=== PATIENT | female | born 1940 | race Caucasian/White ===

== ENCOUNTER 2017-11-07 05:01 | Emergency (ER) | payer OTHER ==
[~2017-11-07] VITALS: Ht 165.1 cm; Wt 74.4 kg
[~2017-11-07 05:01] MED LIST: ALENDRONATE SODIUM; AMLODIPINE; LEVOTHYROXINE; LOSARTAN POTASSIUM; METOPROLOL; OMEPRAZOLE; PRAVASTATIN
[2017-11-07] MEDS ORDERED: ONDANSETRON HCL 4 MG ORAL DISINTEGRATING TAB ONE (05:28)
[2017-11-07] MEDS ORDERED: ONDANSETRON HCL 4 MG ORAL DISINTEGRATING TAB PO ONE (05:30)
== END 2017-11-07 05:25 | disposition home or self-care (01) ==
LOC: ER 05:01
DX: I10 Essential (primary) hypertension (principal)
CPT/HCPCS: 99282

== ENCOUNTER 2017-11-08 15:15 | Emergency (ER) | payer OTHER ==
[~2017-11-08] VITALS: Ht 165.1 cm; Wt 70.3 kg
--- OUTSIDE RECORDS SUMMARY | 2017-11-08 15:18 | XMS REPORT | Continuity of Care Document ---
Author Author [facility] Organization [facility] Address [address] [place] [address] Phone Unavailable Care Team Providers Care Undercollar Baster Name Role Phone NO, PCP PCP Unavailable Insurance Providers Guarantor EdenilsonShannen Santos Address [address] [place] [address] Email NONE Payer [place] Policy Number [id number] Subscriber's Name Shannen Pyle Relationship 18 Self / Same As Patient Group Number [id number] Group Name [id number] Effective Date 04 Advance Directives Directive Response Recorded Date/Time Does the patient have an advance directive? No 04/19/11 1:58pm If yes, is advance directive on file with [facility]? No 04/19/11 1:58pm If not on file with [facility] will patient provide a copy? No 04/19/11 1:58pm Problems No problem information available. Medications Current Home Medications Medication Dose Units Route Directions Days Qty Instructions Start Date Amlodipine Levothyroxine Losartan Potassium Metoprolol Omeprazole Pravastatin Past Home Medications Medication Directions Ordered Status Alendronate Sodium , Discontinued Social History Social History Problem Response Recorded Date/Time Onset Date Status Hx Psychiatric Problems No 04/19/2011 1:58pm Not Applicable Not Applicable Hx Eating Disorder No 03/31/2011 1:27pm Not Applicable Not Applicable Hx Substance Use Disorder No 03/31/2011 1:27pm Not Applicable Not Applicable Hx Depression No 03/31/2011 1:27pm Not Applicable Not Applicable Smoking Status Start Date Stop Date Never Smoker Hospital Discharge Instructions No hospital discharge instruction information available. Plan of Care Discharge Date 11/07/17 5:25am Disposition HOME, SELF-CARE Condition at Discharge Stable Instructions/Education Provided Hypertension Forms Provided Work/School Excuse Prescriptions See Medication Section Additional Instructions/Education FOLLOW UP WITH PRIMARY CARE PHYSICIAN Functional Status No functional status information available. Allergies, Adverse Reactions, Alerts Allergen Type Severity Reaction Status Last Updated Meloxicam Allergy Active 04/19/11 Levofloxacin Allergy PT STATES SHE THINKS SHE MAY BE Active 03/31/11 Immunizations No immunization information available. Vital Signs Acute Vital Signs Vital Response Date/Time Height 5 ft 5 in 11/07/2017 5:07am Weight 164 lb 11/07/2017 5:07am Body Mass Index 27.3 kg/m^2 11/07/2017 5:07am Results No relevant diagnostic test, laboratory data and/or discharge summary information available. Procedures No procedure information available. Encounters Encounter Location Arrival/Admit Date Discharge/Depart Date Attending Provider Departed Emergency Room [facility] 11/07/17 5:01am 5:25am SILVANO GROVER MD
[2017-11-08] MEDS ORDERED: DIATRIZOATE MEGL/DIATRIZOA SOD 30 ML BTL PO ONE (18:27)
[2017-11-08 18:32] LABS: BASOPHILS % 0.3 % (0.0-1.0); EOSINOPHILS % 0.4 % (0.0-6.0); HEMATOCRIT 35.4 % (34.2-44.1); HEMOGLOBIN 12.8 g/dL (12.0-16.0); LYMPHOCYTES # (AUTO) 2.2 (1.0-3.2); LYMPHOCYTES % 23.6 % (18.0-39.1); MEAN CORPUSCULAR HEMOGLOBIN 32.2 pg (28-32); MEAN CORPUSCULAR HGB CONC 36.2 g/dL (31-35); MEAN CORPUSCULAR VOLUME 88.9 fL (81-99); MONOCYTES # (AUTO) 0.9 (0.2-0.8); MONOCYTES % 9.9 % (4.4-11.3); NEUTROPHILS # (AUTO) 6.2 (2.1-6.9); NEUTROPHILS % 65.4 % (38.7-80.0); PLATELET COUNT 262 x10e3/uL (140-360); RED BLOOD COUNT 3.98 x10e6/uL (3.6-5.1)
[2017-11-08 18:36] LABS: BILIRUBIN,URINE NEGATIVE (NEGATIVE); KETONES,URINE NEGATIVE (NEGATIVE); LEUKOCYTE ESTERASE ,URINE TRACE (NEGATIVE); NITRITE,URINE NEGATIVE (NEGATIVE); PROTEIN,URINE DIPSTICK NEGATIVE (NEGATIVE); URINE UROBILINOGEN 0.2 mg/dL (0.2 - 1)
[2017-11-08 18:37] LABS: CLARITY,URINE CLEAR (CLEAR); COLOR,URINE STRAW (YELLOW)
[2017-11-08 18:41] LABS: INR 1.04; PROTHROMBIN TIME 12.8 seconds (11.9-14.5)
[2017-11-08 18:42] LABS: PARTIAL THROMBOPLASTIN TIME 24.7 seconds (23.8-35.5)
[2017-11-08 18:49] LABS: ALANINE AMINOTRANSFERASE 12 IU/L (0-55); ALBUMIN 4.3 g/dL (3.5-5.0); ALBUMIN/GLOBULIN RATIO 1.3 (0.8-2.0); ALKALINE PHOSPHATASE 71 IU/L (40-150); AMYLASE 66 U/L (25-125); ANION GAP 14.3 mmol/L (8-16); BLOOD UREA NITROGEN 6 mg/dL (7-26); BUN/CREATININE RATIO 7 (6-25); CALCIUM 9.7 mg/dL (8.4-10.2); CARBON DIOXIDE 28 mmol/L (22-29); CHLORIDE 87 mmol/L (98-107); CREATININE, SERUM 0.82 mg/dL (0.57-1.11); EST GLOMERULAR FILTRATION RATE > 60 ML/MIN (60-); GLUCOSE 99 mg/dL (74-118); LIPASE 67 U/L (8-78); POTASSIUM 3.3 mmol/L (3.5-5.1); SODIUM 126 mmol/L (136-145)
[2017-11-08 18:58] LABS: RBC,URINE 0-5 /HPF (0-5); WBC,URINE (MAN) 0-5 /HPF (0-5)
[2017-11-08 18:59] LABS: EPITHELIAL CELLS,URINE RARE /LPF; TRANSITIONAL EPI CELLS,URINE FEW
--- NOTE | 2017-11-08 19:41 | Diagnostic Imaging Report ---
EXAM: CT Abdomen and Pelvis WITH contrast INDICATION: Pain COMPARISON: None. TECHNIQUE: Abdomen and Pelvis was scanned utilizing a multidetector helical scanner after administration of IV contrast. Coronal and sagittal reformations were obtained. IV CONTRAST: 100 mL Isovue-370 COMPLICATIONS: None RADIATION DOSE: Total DLP:422 mGy*cm Estimated effective dose: (DLP x 0.015 x size factor) mSv CTDIvol has been reviewed. It is below the limits set by the Radiation Protocol Committee (RPC). FINDINGS: Abdomen: Lung Bases: Atelectasis. Solid Organs: Scattered hypodensities in the liver, majority of which are too small to characterize. Cholecystectomy clips present. Cyst left kidney with additional to small characterize hypodensity. Mottled appearance of spleen. Adrenal glands and pancreas unremarkable. Probable reservoir phenomenon. Upper GI Tract: No distention of the stomach. Small bowel not dilated. Enteric contrast present to the proximal to mid ileum. Vascularity: Mild vascular calcifications. No aortic aneurysm. Lymph Nodes: No suspicious adenopathy. Other: None. Pelvis: Bladder: Unremarkable. Other: None Colon: Distal decompression and lack of enteric contrast limits evaluation. No right lower quadrant inflammatory changes. Bones: Moderate left apex curvature of the lumbar spine with moderate degenerative changes. 27 mm sclerotic lesion L5. IMPRESSION: 1. No small bowel obstructive changes. 2. Splenic and hepatic hypodensities incompletely evaluated. Liver mass MRI could be obtained for further evaluation. 3. Ill-defined 27 mm sclerotic lesion L5. If prior studies are available for comparison, this would be helpful. Bone scan could be obtained for further evaluation. 4. Small hiatal hernia. Signed by: Dr. Jay Mancera MD on 11/08/2017 7:38 PM
[2017-11-08] MEDS ORDERED: SODIUM CHLORIDE 0.9% 50ML 50 ML ONE (22:47)
[2017-11-08] MEDS ORDERED: IOPAMIDOL 370 MG/ML 200 ML INFUS..BTL INJ ONE (22:48)
== END 2017-11-08 20:55 | disposition home or self-care (01) ==
LOC: ER 15:15
DX: R10.31 Right lower quadrant pain (principal); R11.2 Nausea with vomiting, unspecified; N39.0 Urinary tract infection, site not specified; E87.6 Hypokalemia; I10 Essential (primary) hypertension
CPT/HCPCS: 36415; 74177; 80053; 81001; 82150; 83690; 85025; 85610; 85730; 99284; Q9967

== ENCOUNTER 2018-10-22 13:46 | Emergency (ER) | payer MEDICARE, OTHER ==
[~2018-10-22] VITALS: Ht 165.1 cm; Wt 70.3 kg
--- OUTSIDE RECORDS SUMMARY | 2018-10-22 13:49 | XMS REPORT ---
Author Author [facility] Address Unknown Phone Unavailable Care Team Providers Care Feed Research Technician Name Role Phone Jairo BRICE Unavailable Unavailable Problems This patient has no known problems. Allergies, Adverse Reactions, Alerts This patient has no known allergies or adverse reactions. Medications This patient has no known medications. Results Test Description Test Time Test Comments Text Results Atomic Results Result Comments CT ABDOMEN/PELVIS W [place] [address] Patient Name: LUPE BRUNO MR #: [id number] : 1940 Age/Sex: 77/F Req #: [id number] Adm Physician: Ordered by: RUCHI LIN [employer] INVESTMENT ACT CAREER MANAGER Report #: [id number] Location: ER Room/Bed: Procedure: [id number] CT/CT ABDOMEN/PELVIS W Exam Date: 11/08/17 Exam Time: 1906 REPORT STATUS: Signed EXAM: CT Abdomen and Pelvis WITH contrast INDICATION: Pain COMPARISON: None. TECHNIQUE: Abdomen and Pelvis was scanned utilizing a multidetector helical scanner after administration of IV contrast. Coronal and sagittal reformations were obtained. IV CONTRAST: 100 mL Isovue- 370 COMPLICATIONS: None RADIATION DOSE: Total DLP:422 mGy*cm Estimated effective dose: (DLP x 0.015 x size factor) mSv CTDIvol has been reviewed. It is below the limits set by the Radiation Protocol Committee (RPC). FINDINGS: Abdomen: Lung Bases: Atelectasis. Solid Organs: Scattered hypodensities in the liver, majority of which are too small to characterize. Cholecystectomy clips present. Cyst left kidney with additional to small characterize hypodensity. Mottled appearance of spleen. Adrenal glands and pancreas unremarkable. Probable reservoir phenomenon. Upper GI Tract: No distention of the stomach. Small bowel not dilated. Enteric contrast present to the proximal to mid ileum. Vascularity: Mild vascular calcifications. No aortic aneurysm. Lymph Nodes: No suspicious adenopathy. Other: None. Pelvis: Bladder: Unremarkable. Other: None Colon: Distal decompression and lack of enteric contrast limits evaluation. No right lower quadrant inflammatory changes. Bones: Moderate left apex curvature of the lumbar spine with moderate degenerative changes. 27 mm sclerotic lesion L5. IMPRESSION: 1. No small bowel obstructive changes. 2. Splenic and hepatic hypodensities incompletely evaluated. Liver mass MRI could be obtained for further evaluation. 3. Ill-defined 27 mm sclerotic lesion L5. If prior studies are available for comparison, this would be helpful. Bone scan could be obtained for further evaluation. 4. Small hiatal hernia. Signed by: Dr. Jay Mancera MD on 11/08/2017 7:38 PM Dictated By: JAY MANCERA MD 37 Transcribed By: PIPER on 11/08/171937 COPY TO: RUCHI LIN NP
[2018-10-22] MEDS ORDERED: ONDANSETRON HCL 4 MG ORAL DISINTEGRATING TAB PO ONE (14:15)
--- NOTE | 2018-10-22 15:15 | NUR ---
updated plan of care. notified of lab results. pt upset asking why she is waiting so long for testing. explained multiple pt getting imaging and appologized for wait. pt states understanding. no vomiting since arrival
[2018-10-22] MEDS ORDERED: IOPAMIDOL 370 MG/ML 50ML INFUS..BTL INJ ONE (16:00)
--- NOTE | 2018-10-22 16:12 | Diagnostic Imaging Report ---
EXAMINATION: CT of the abdomen and pelvis with contrast. TECHNIQUE: Spiral CT images of the abdomen and pelvis were performed from the lung bases to the lesser trochanters after the intravenous administration of 100 cc of Isovue-370 and the oral administration of water. Coronal and sagittal reformatted images were obtained. COMPARISON: CT abdomen and pelvis 11/08/2017 CLINICAL HISTORY:Right lower quadrant pain DISCUSSION: ABDOMEN/PELVIS: LOWER THORAX:Linear opacity in the lower lobes left greater than right compatible with subsegmental atelectasis. HEPATOBILIARY: Multiple hypoattenuating hepatic lesions are again noted. The largest lesions are in segment 4A and segment 5, both of which measure less than 20 Hounsfield units in attenuation compatible with cysts. Additional smaller lesions scattered throughout the liver are too small to further characterize but likely also to represent small cysts. Moderate intrahepatic biliary ductal dilatation is unchanged and may relate to reservoir effect status post cholecystectomy. SPLEEN: Multiple hypoattenuating lesions are again noted scattered throughout the spleen, not significantly changed compared to the prior examination when accounting for differences in slice selection. PANCREAS: No focal masses or ductal dilatation. ADRENALS: No adrenal nodules. KIDNEYS/URETERS: Left upper pole cyst, not significantly changed. No additional focal lesion with the exception of a subcentimeter hypoattenuating lesion projecting from the lower pole of the left kidney, also unchanged and likely to represent a small cyst. PELVIC ORGANS/BLADDER: Urinary bladder is unremarkable. Uterus is not identified and has presumably been removed. PERITONEUM/RETROPERITONEUM: No ascites. No pneumoperitoneum. LYMPH NODES: No pelvic sidewall, retroperitoneal, or mesenteric lymphadenopathy. VESSELS: Atherosclerotic calcification of the abdominal aorta and major branch vessels without aneurysmal dilatation. Portal vein, splenic vein, and central superior mesenteric vein are patent. GI TRACT: The large bowel shows no evidence of distention or wall thickening, though the sigmoid colon and rectum are collapsed and poorly evaluated the appendix is not definitively identified. No right lower quadrant inflammation. No small bowel dilatation to suggest obstruction. Moderate sliding hiatal hernia. BONES AND SOFT TISSUE: Unchanged well-circumscribed 2.7 cm sclerotic lesion in L5 with a smaller sclerotic lesion in the sacral body. Multilevel degenerative disc changes and facet arthropathy of the thoracolumbar spine with levoscoliotic curvature at the thoracolumbar junction. No focal soft tissue abnormalities. IMPRESSION: No acute intra-abdominal or pelvic CT abnormalities. Stable moderate intrahepatic biliary ductal dilatation status post cholecystectomy, likely related to reservoir effect. Correlation with serum bilirubin is suggested. Grossly unchanged hepatic and splenic hypodensities which may be definitively characterized by MRI of the abdomen with and without contrast as previously discussed. Moderate hiatal hernia. Stable sclerotic lesion in the L5 vertebral body, likely an atypical hemangioma or large osteoma. Signed by: Dr. Will Faye M.D. on 10/22/2018 4:09 PM
== END 2018-10-22 16:34 | disposition home or self-care (01) ==
LOC: FSED 13:46
DX: R10.31 Right lower quadrant pain (principal); I10 Essential (primary) hypertension; E78.5 Hyperlipidemia, unspecified
CPT/HCPCS: 74177; 80053; 81003; 83880; 99284; Q0162; Q9967

== ENCOUNTER 2021-12-20 15:27 | Observation (INO) | payer MEDICARE ==
[~2021-12-20] VITALS: Ht 165.1 cm; Wt 70.3 kg
[2021-12-20] MEDS ORDERED: SODIUM CHLORIDE FLUSH 10 ML SYR IV PRN (16:00)
[2021-12-20 16:09] LABS: BASOPHILS % 0.5 % (0.0-1.0); EOSINOPHILS # (AUTO) 0.1 (0.0-0.4); EOSINOPHILS % 0.8 % (0.0-6.0); HEMATOCRIT 39.5 % (34.2-44.1); HEMOGLOBIN 13.4 g/dL (12.0-16.0); LYMPHOCYTES # (AUTO) 1.6 (1.0-3.2); LYMPHOCYTES % 19.3 % (18.0-39.1); MEAN CORPUSCULAR HEMOGLOBIN 32.1 pg (28-32); MEAN CORPUSCULAR HGB CONC 33.9 g/dL (31-35); MEAN CORPUSCULAR VOLUME 94.7 fL (81-99); MONOCYTES # (AUTO) 0.6 (0.2-0.8); MONOCYTES % 7.1 % (4.4-11.3); NEUTROPHILS # (AUTO) 6.1 (2.1-6.9); NEUTROPHILS % 71.6 % (38.7-80.0); PLATELET COUNT 239 x10e3/uL (140-360); RED BLOOD COUNT 4.17 x10e6/uL (3.6-5.1); RED CELL DISTRIBUTION WIDTH 12.4 % (11.7-14.4)
[2021-12-20 16:36] LABS: ALANINE AMINOTRANSFERASE 10 IU/L (0-55); ALBUMIN 3.9 g/dL (3.5-5.0); ALKALINE PHOSPHATASE 65 IU/L (40-150); ANION GAP 13.4 mmol/L (8-16); BLOOD UREA NITROGEN 12 mg/dL (7-26); BUN/CREATININE RATIO 13 (6-25); CALCIUM 9.4 mg/dL (8.4-10.2); CARBON DIOXIDE 26 mmol/L (22-29); CHLORIDE 93 mmol/L (98-107); EST GLOMERULAR FILTRATION RATE 60 ML/MIN (60-); GLUCOSE 141 mg/dL (74-118); POTASSIUM 3.4 mmol/L (3.5-5.1); SODIUM 129 mmol/L (136-145)
[2021-12-20] MEDS ORDERED: ONDANSETRON HCL INJ 2MG/ML 2ML 2 MG/ML VIAL IV PRN (17:30)
[2021-12-20] MEDS ORDERED: HYDRALAZINE HCL 20 MG/ML VIAL IV PRN (19:45)
[2021-12-20] MEDS ORDERED: ACETAMINOPHEN 325 MG TAB PO PRN (19:45)
[2021-12-20] MEDS ORDERED: POTASSIUM CHLORIDE 10MEQ EA PO ONE (20:05)
[2021-12-20 20:32] VITALS: BP 154/85
[2021-12-20 21:00] VITALS: BP 154/85
[2021-12-20] MEDS ORDERED: PRAVASTATIN 20 MG TAB PO SCH (21:00)
[2021-12-20 22:48] LABS: CREATINE KINASE MB 1.4 ng/mL (0-5.0)
[2021-12-21 00:06] VITALS: BP 170/67
[2021-12-21 00:48] LABS: CREATINE KINASE 62 IU/L (29-168)
[2021-12-21] MEDS ORDERED: ALPRAZOLAM 0.25 MG TAB PO ONE (05:00)
[2021-12-21 05:15] VITALS: BP 120/74
[2021-12-21 07:17] VITALS: BP 158/92
[2021-12-21] MEDS ORDERED: DILTIAZEM 24HR120 M1 PO (07:21)
[2021-12-21] MEDS ORDERED: HYDROCHLOROTHIA25 MG (07:21)
[2021-12-21] MEDS ORDERED: LEVOTHYROXINE88 MCG PO (07:21)
[2021-12-21] MEDS ORDERED: METOPROLOL TART50 MG PO (07:21)
[2021-12-21] MEDS ORDERED: PRAVASTATIN SOD20 MG PO (07:21)
[2021-12-21] MEDS ORDERED: LOSARTAN POTASS25 MG PO (07:21)
[2021-12-21] MEDS ORDERED: TRICOR48 MG PO (07:21)
[2021-12-21 08:38] VITALS: BP 158/92
[2021-12-21] MEDS ORDERED: ASPIRIN 81 MG ENTERIC COATED PO SCH (09:00)
[2021-12-21] MEDS ORDERED: LOSARTAN POTASSIUM 25 MG TAB PO SCH (09:00)
[2021-12-21] MEDS ORDERED: OMEPRAZOLE 20 MG CAP PO SCH (09:00)
[2021-12-21] MEDS ORDERED: METOPROLOL TARTRATE 25 MG TAB PO SCH (09:00)
[2021-12-21 09:07] LABS: CREATINE KINASE 52 IU/L (29-168)
[2021-12-21 10:32] LABS: CHOL/HDL RATIO 3.2 (3.0-3.6)
[2021-12-21 12:00] VITALS: BP 156/81
[2021-12-21 12:04] LABS: ANION GAP 15.7 mmol/L (8-16); CALCIUM 9.2 mg/dL (8.4-10.2); CREATININE, SERUM 0.75 mg/dL (0.57-1.11); POTASSIUM 3.7 mmol/L (3.5-5.1)
[2021-12-21] MEDS ORDERED: ONDANSETRON HCL 4 MG ORAL DISINTEGRATING TAB PO PRN (12:30)
[2021-12-21] MEDS ORDERED: METOPROLOL TARTRATE 50 MG TAB PO SCH (17:00)
[2021-12-22] MEDS ORDERED: LEVOTHYROXINE SODIUM 88 MCG TAB PO SCH (06:00)
[2021-12-22] MEDS ORDERED: FENOFIBRATE 48 MG TAB PO SCH (09:00)
[2021-12-22] MEDS ORDERED: LOSARTAN POTASSIUM 25 MG TAB PO SCH (09:00)
== END 2021-12-21 13:01 | disposition home or self-care (01) ==
LOC: ER 15:41 → ERHOLD 17:33 → MED/SURG 19:42
PROVIDERS: ADMIT Internal Medicine; ATTEND Internal Medicine
DX: R07.89 Other chest pain (principal); I10 Essential (primary) hypertension; K21.9 Gastro-esophageal reflux disease without esophagitis; F41.9 Anxiety disorder, unspecified; M06.9 Rheumatoid arthritis, unspecified; E89.0 Postprocedural hypothyroidism; Z20.822 Contact with and (suspected) exposure to COVID-19; E78.00 Pure hypercholesterolemia, unspecified
CPT/HCPCS: 36415 ×2; 71045; 80048; 80053; 80061; 82550 ×2; 82553 ×2; 83605; 83880; 84443; 84484 ×2; 85025; 93005 ×2; 93017; 93306; 94760; 94799; 99284; G0378 ×2; U0002

== ENCOUNTER 2022-06-26 08:52 | Emergency (ER) | payer MEDICARE ==
[~2022-06-26] VITALS: Ht 162.6 cm; Wt 73.9 kg
[~2022-06-26 08:52] MED LIST changes: +DILTIAZEM 24HR120 M1 PO; +HYDROCHLOROTHIA25 MG; +LEVOTHYROXINE88 MCG PO; +LOSARTAN POTASS25 MG PO; +METOPROLOL TART50 MG PO; +PRAVASTATIN SOD20 MG PO; +TRICOR48 MG PO
[2022-06-26] MEDS ORDERED: KETOROLAC TROMETHAMINE 30 MG/ML VIAL ONE (09:31)
[2022-06-26] MEDS ORDERED: SODIUM CHLORIDE 0.9% 1000ML 1,000 ML ONE (09:32)
[2022-06-26] MEDS ORDERED: ONDANSETRON HCL INJ 2MG/ML 2ML 2 MG/ML VIAL ONE (09:32)
[2022-06-26] MEDS ORDERED: KETOROLAC TROMETHAMINE 30 MG/ML VIAL IV STA (09:34)
[2022-06-26] MEDS ORDERED: ONDANSETRON HCL INJ 2MG/ML 2ML 2 MG/ML VIAL IV STA (09:34)
[2022-06-26] MEDS ORDERED: SODIUM CHLORIDE 0.9% 1000ML 1,000 ML IV ONE (09:45)
[2022-06-26] MEDS ORDERED: IOPAMIDOL 370 MG/ML 100 ML INFUS..BTL INJ ONE (10:07)
[2022-06-26] MEDS ORDERED: HYDROCODONE/APAP 5MG-325MG TAB ONE (10:59)
[2022-06-26] MEDS ORDERED: HYDROCODONE/APAP 5MG-325MG TAB PO ONE (11:00)
[2022-06-26] MEDS ORDERED: ACETAMINOPHEN-1 EAC4 PO (11:25)
[2022-06-26 11:31] VITALS: BP 180/85
== END 2022-06-26 11:41 | disposition home or self-care (01) ==
LOC: FSED 09:10
DX: R07.9 Chest pain, unspecified (principal); M54.9 Dorsalgia, unspecified; R09.1 Pleurisy; I25.10 Atherosclerotic heart disease of native coronary artery without angina pectoris; I10 Essential (primary) hypertension; E78.5 Hyperlipidemia, unspecified; E03.9 Hypothyroidism, unspecified; F41.9 Anxiety disorder, unspecified; Z79.899 Other long term (current) drug therapy
CPT/HCPCS: 71275; 80053; 81003; 82553; 84484; 85025; 85379; 93005; 96374; 96376; 99284; J1885; J2405; J7030; Q9967

== ENCOUNTER 2022-07-11 13:38 | Emergency (ER) | payer MEDICARE ==
[~2022-07-11] VITALS: Ht 162.6 cm; Wt 72.6 kg
[~2022-07-11 13:38] MED LIST changes: +ACETAMINOPHEN-1 EAC4 PO
[2022-07-11] MEDS ORDERED: LABETALOL HCL 5 MG/ML 20ML VIAL IV ONE (14:12)
[2022-07-11] MEDS ORDERED: ONDANSETRON HCL INJ 2MG/ML 2ML 2 MG/ML VIAL IV ONE (14:15)
[2022-07-11] MEDS ORDERED: SODIUM CHLORIDE FLUSH 10 ML SYR INJ PRN (15:15)
[2022-07-11] MEDS ORDERED: ONDANSETRON HCL INJ 2MG/ML 2ML 2 MG/ML VIAL ONE (15:30)
[2022-07-11] MEDS ORDERED: LABETALOL HCL 20 ML ONE (15:30)
[2022-07-11] MEDS ORDERED: ACETAMINOPHEN 325 MG TAB PO ONE (15:30)
[2022-07-11] MEDS ORDERED: PANTOPRAZOLE SO40 MG PO (16:01)
[2022-07-11] MEDS ORDERED: ONDANSETRON ODT4 MG PO (16:01)
[2022-07-11 16:18] VITALS: BP 193/83
[2022-07-12] MEDS ORDERED: ASPIRIN 81 MG CHEW TAB PO SCH (09:00)
== END 2022-07-11 16:18 | disposition home or self-care (01) ==
LOC: FSED 14:04
DX: I16.0 Hypertensive urgency (principal); K29.70 Gastritis, unspecified, without bleeding; R10.30 Lower abdominal pain, unspecified; K57.90 Diverticulosis of intestine, part unspecified, without perforation or abscess without bleeding; M54.9 Dorsalgia, unspecified
CPT/HCPCS: 74176; 80053; 81003; 82270; 82553; 84484; 85025; 93005; 96374; 96375; 96376; 99284; C9113; J2405; J3490

== ENCOUNTER 2022-10-17 07:08 | Inpatient (IN) | payer MEDICARE ==
[~2022-10-17] VITALS: Ht 162.6 cm; Wt 71.7 kg
[~2022-10-17 07:08] MED LIST changes: +ONDANSETRON ODT4 MG PO; +PANTOPRAZOLE SO40 MG PO
[2022-10-17] MEDS ORDERED: ONDANSETRON HCL INJ 2MG/ML 2ML 2 MG/ML VIAL IV STA (07:49)
[2022-10-17] MEDS ORDERED: NITROGLYCERIN 0.4 MG SUBL SL PRN (09:45)
[2022-10-17] MEDS ORDERED: ASPIRIN 81 MG CHEW TAB PO ONE (09:45)
[2022-10-17] MEDS ORDERED: SODIUM CHLORIDE FLUSH 10 ML SYR INJ PRN (09:45)
[2022-10-17] MEDS ORDERED: ASPIRIN 81 MG CHEW TAB ONE (10:20)
[2022-10-17] MEDS ORDERED: ONDANSETRON HCL 4 MG ORAL DISINTEGRATING TAB PO PRN (11:15)
[2022-10-17] MEDS ORDERED: ACETAMINOPHEN 325 MG TAB PO PRN (11:15)
[2022-10-17] MEDS ORDERED: HYDROCHLOROTHIAZIDE 25 MG TAB PO SCH (11:15)
[2022-10-17] MEDS ORDERED: CLONIDINE HCL 0.1 MG TAB PO PRN (11:15)
[2022-10-17] MEDS ORDERED: LOSARTAN POTASSIUM 25 MG TAB PO SCH (11:15)
[2022-10-17 11:50] VITALS: BP 160/100
[2022-10-17 12:03] VITALS: BP 160/100
[2022-10-17] MEDS ORDERED: AMLODIPINE BESYL5 MG PO (12:49)
[2022-10-17] MEDS ORDERED: SERTRALINE HCL25 MG PO (12:49)
[2022-10-17] MEDS: METOPROLOL TARTRATE 50 MG TAB PO SCH ×2 (12:55→17:11)
[2022-10-17 16:36] VITALS: BP 164/88
[2022-10-17 17:13] VITALS: BP 164/72
[2022-10-17] MEDS: CARVEDILOL 3.125 MG TAB PO SCH (17:45)
[2022-10-17] MEDS ORDERED: FUROSEMIDE INJ 10 MG/ML 2 ML VIAL IV ONE (18:00)
[2022-10-17 18:55] LABS: CREATINE KINASE MB 3.6 ng/mL (0-5.0)
[2022-10-17 20:00] VITALS: BP 132/80
[2022-10-17] MEDS: PRAVASTATIN 20 MG TAB PO SCH (21:24)
[2022-10-17] MEDS: ALPRAZOLAM 0.5 MG TAB PO PRN (21:24)
[2022-10-17 21:30] VITALS: BP 132/80
[2022-10-18] VITALS (8 sets, daily range): BP systolic 115–154; BP diastolic 65–88
[2022-10-18] MEDS: LEVOTHYROXINE SODIUM 88 MCG TAB PO SCH (05:04)
[2022-10-18 05:51] LABS: BASOPHILS # (AUTO) 0.1 (0.0-0.1); BASOPHILS % 0.5 % (0.0-1.0); EOSINOPHILS # (AUTO) 0.1 (0.0-0.4); EOSINOPHILS % 0.9 % (0.0-6.0); HEMATOCRIT 38.7 % (34.2-44.1); LYMPHOCYTES # (AUTO) 2.3 (1.0-3.2); LYMPHOCYTES % 22.2 % (18.0-39.1); MEAN CORPUSCULAR HEMOGLOBIN 31.6 pg (28-32); MEAN CORPUSCULAR HGB CONC 33.6 g/dL (31-35); MEAN CORPUSCULAR VOLUME 94.2 fL (81-99); MONOCYTES # (AUTO) 1.3 (0.2-0.8); MONOCYTES % 12.2 % (4.4-11.3); NEUTROPHILS # (AUTO) 6.6 (2.1-6.9); NEUTROPHILS % 63.7 % (38.7-80.0); PLATELET COUNT 212 x10e3/uL (140-360); RED BLOOD COUNT 4.11 x10e6/uL (3.6-5.1); RED CELL DISTRIBUTION WIDTH 12.9 % (11.7-14.4)
[2022-10-18 06:15] LABS: ALBUMIN 3.8 g/dL (3.5-5.0); ALBUMIN/GLOBULIN RATIO 1.2 (0.8-2.0); ANION GAP 16.5 mmol/L (8-16); CALCIUM 9.2 mg/dL (8.4-10.2); CREATININE, SERUM 1.54 mg/dL (0.57-1.11); POTASSIUM 3.5 mmol/L (3.5-5.1)
[2022-10-18 06:34] LABS: CREATINE KINASE MB 4.6 ng/mL (0-5.0)
[2022-10-18] MEDS: LOSARTAN POTASSIUM 100 MG TAB PO SCH (09:13)
[2022-10-18] MEDS: FENOFIBRATE 48 MG TAB PO SCH (09:13)
[2022-10-18] MEDS: CARVEDILOL 3.125 MG TAB PO SCH ×2 (09:14→17:11)
[2022-10-18] MEDS: PANTOPRAZOLE SOD 40 MG TABEC PO SCH (09:14)
[2022-10-18] MEDS: SODIUM CHLORIDE 0.9% 1000ML 1,000 ML IV SCH (12:45)
[2022-10-18] MEDS ORDERED: PROMETHAZINE 12.5MG/ NACL 0.9% 12.5 MG/50 ML BAG IV ONE (13:15)
[2022-10-18 13:38] LABS: CREATINE KINASE MB 4.6 ng/mL (0-5.0)
[2022-10-18 17:00] LABS: CALCIUM 9.6 mg/dL (8.4-10.2); CREATININE, SERUM 1.2 mg/dL (0.57-1.11)
[2022-10-18] MEDS ORDERED: POTASSIUM CHLORIDE 10MEQ EA PO ONE (18:30)
[2022-10-18] MEDS: ALPRAZOLAM 0.5 MG TAB PO PRN (20:45)
[2022-10-18] MEDS: PRAVASTATIN 20 MG TAB PO SCH (20:45)
[2022-10-19] VITALS: BP 132/78
[2022-10-19] MEDS: SODIUM CHLORIDE 0.9% 1000ML 1,000 ML IV SCH ×2 (02:05→13:52)
[2022-10-19 04:00] VITALS: BP 123/65
[2022-10-19] MEDS: LEVOTHYROXINE SODIUM 88 MCG TAB PO SCH (05:03)
[2022-10-19 05:37] LABS: BASOPHILS # (AUTO) 0.1 (0.0-0.1); BASOPHILS % 0.6 % (0.0-1.0); EOSINOPHILS # (AUTO) 0.2 (0.0-0.4); EOSINOPHILS % 1.8 % (0.0-6.0); HEMATOCRIT 35.7 % (34.2-44.1); HEMOGLOBIN 12.1 g/dL (12.0-16.0); LYMPHOCYTES # (AUTO) 2.5 (1.0-3.2); LYMPHOCYTES % 28.4 % (18.0-39.1); MEAN CORPUSCULAR HEMOGLOBIN 31.4 pg (28-32); MEAN CORPUSCULAR HGB CONC 33.9 g/dL (31-35); MEAN CORPUSCULAR VOLUME 92.7 fL (81-99); MONOCYTES % 11.6 % (4.4-11.3); NEUTROPHILS % 57.1 % (38.7-80.0); PLATELET COUNT 187 x10e3/uL (140-360); RED BLOOD COUNT 3.85 x10e6/uL (3.6-5.1); RED CELL DISTRIBUTION WIDTH 13.1 % (11.7-14.4)
[2022-10-19 06:19] LABS: ANION GAP 12.8 mmol/L (8-16); CALCIUM 8.5 mg/dL (8.4-10.2); CREATININE, SERUM 1.66 mg/dL (0.57-1.11); POTASSIUM 3.8 mmol/L (3.5-5.1)
[2022-10-19 08:15] VITALS: BP 139/83
[2022-10-19 09:00] VITALS: BP 139/83
[2022-10-19] MEDS: PANTOPRAZOLE SOD 40 MG TABEC PO SCH (10:52)
[2022-10-19] MEDS: CARVEDILOL 3.125 MG TAB PO SCH ×2 (10:53→17:46)
[2022-10-19] MEDS: LOSARTAN POTASSIUM 100 MG TAB PO SCH (10:53)
[2022-10-19] MEDS: FENOFIBRATE 48 MG TAB PO SCH (10:53)
[2022-10-19 12:09] VITALS: BP 133/71
[2022-10-19] MEDS ORDERED: SODIUM CHLORIDE 0.9% 500ML 500 ML IV ONE (12:30)
[2022-10-19 16:11] VITALS: BP 131/67
[2022-10-19] MEDS ORDERED: CLONIDINE HCL0.1 MG PO (17:23)
[2022-10-19 17:30] LABS: ANION GAP 12.5 mmol/L (8-16); CALCIUM 8.6 mg/dL (8.4-10.2); CREATININE, SERUM 1.02 mg/dL (0.57-1.11); POTASSIUM 4.5 mmol/L (3.5-5.1)
== END 2022-10-19 18:35 | DRG 291 ==
LOC: FSED 07:21 → ERHOLD 09:37 → UNDOADMOB 09:37 → MED/SURG 11:31 → OBSVTOIN 10-19 08:43
PROVIDERS: ADMIT Internal Medicine; ATTEND Internal Medicine
DX: I11.0 Hypertensive heart disease with heart failure (principal); I50.33 Acute on chronic diastolic (congestive) heart failure; M62.82 Rhabdomyolysis; F41.9 Anxiety disorder, unspecified; K21.9 Gastro-esophageal reflux disease without esophagitis; E03.9 Hypothyroidism, unspecified; M19.90 Unspecified osteoarthritis, unspecified site; I25.10 Atherosclerotic heart disease of native coronary artery without angina pectoris; E78.00 Pure hypercholesterolemia, unspecified; R25.2 Cramp and spasm; Z20.822 Contact with and (suspected) exposure to COVID-19; M06.9 Rheumatoid arthritis, unspecified; Z79.899 Other long term (current) drug therapy; I48.91 Unspecified atrial fibrillation; Z79.01 Long term (current) use of anticoagulants
CPT/HCPCS: 36415; 71046; 74018; 80048; 80053; 80061; 81003; 82550; 82553; 83036; 83880; 84484; 85025; 93005; 93306; 93970; 96374; 99284; G0378; J1940; J2405; J2550; J7030; J7040; Q0162

== ENCOUNTER 2024-07-11 14:39 | Emergency (ER) | payer MEDICARE ==
[~2024-07-11] VITALS: Ht 162.6 cm; Wt 76.2 kg
[~2024-07-11 14:39] MED LIST changes: +AMLODIPINE BESYL5 MG PO; +CLONIDINE HCL0.1 MG PO; +SERTRALINE HCL25 MG PO
[2024-07-11 14:50] VITALS: PULSE 77; RESP 16; TEMP 99.2; O2SAT 100
[2024-07-11 15:21] LABS: BASOPHILS # (AUTO) 0.1 (0.0-0.1); BASOPHILS % 0.7 % (0.0-1.0); EOSINOPHILS % 0.3 % (0.0-6.0); HEMATOCRIT 41.8 % (34.2-44.1); HEMOGLOBIN 13.6 g/dL (12.0-16.0); LYMPHOCYTES # (AUTO) 1.5 (1.0-3.2); LYMPHOCYTES % 16.8 % (18.0-39.1); MEAN CORPUSCULAR HEMOGLOBIN 32.4 pg (28-32); MEAN CORPUSCULAR HGB CONC 32.5 g/dL (31-35); MEAN CORPUSCULAR VOLUME 99.5 fL (81-99); MONOCYTES # (AUTO) 0.7 (0.2-0.8); MONOCYTES % 7.6 % (4.4-11.3); NEUTROPHILS # (AUTO) 6.5 (2.1-6.9); NEUTROPHILS % 74.1 % (38.7-80.0); PLATELET COUNT 228 x10e3/uL (140-360); WHITE BLOOD COUNT 8.82 x10e3/uL (4.8-10.8)
[2024-07-11] MEDS: SODIUM CHLORIDE 0.9% 1000ML 1,000 ML IV ONE (15:24)
[2024-07-11] MEDS: ONDANSETRON HCL INJ 2MG/ML 2ML 2 MG/ML VIAL IV STA (15:25)
[2024-07-11] MEDS: KETOROLAC TROMETHAMINE 30 MG/ML VIAL IV STA (15:31)
[2024-07-11 15:32] LABS: ALBUMIN 4.1 g/dL (3.5-5.0); ALBUMIN/GLOBULIN RATIO 1.2 (0.8-2.0); ANION GAP 17.3 mmol/L (8-16); BILIRUBIN,TOTAL 1.4 mg/dL (0.2-1.2); CALCIUM 9.7 mg/dL (8.4-10.2); CREATININE, SERUM 0.79 mg/dL (0.57-1.11); TOTAL PROTEIN 7.6 g/dL (6.5-8.1)
[2024-07-11 15:34] LABS: POTASSIUM 3.3 mmol/L (3.5-5.1)
[2024-07-11] MEDS: FAMOTIDINE 20 MG/2 ML VIAL IV STA (15:35)
[2024-07-11 15:39] LABS: INFLUENZA A AG NEGATIVE (NEGATIVE)
[2024-07-11 15:40] LABS: CORONAVIRUS COVID-19 AG NEGATIVE (NEGATIVE); INFLUENZA B AG NEGATIVE (NEGATIVE)
[2024-07-11] MEDS ORDERED: IOPAMIDOL 370 MG/ML 100 ML INFUS..BTL INJ ONE (15:45)
[2024-07-11] MEDS ORDERED: CYCLOBENZAPRINE10 MG PO (18:22)
== END 2024-07-11 19:14 | disposition home or self-care (01) ==
LOC: ER 15:11
DX: R50.9 Fever, unspecified (principal); R11.2 Nausea with vomiting, unspecified; R19.7 Diarrhea, unspecified; M54.6 Pain in thoracic spine; I10 Essential (primary) hypertension; E78.5 Hyperlipidemia, unspecified; I48.91 Unspecified atrial fibrillation; E03.9 Hypothyroidism, unspecified; K21.9 Gastro-esophageal reflux disease without esophagitis; F41.9 Anxiety disorder, unspecified
CPT/HCPCS: 36415; 71046; 74177; 80053; 83880; 84484; 85025; 87428; 93005; 99284; J1885; J2405; J7030; Q9967